=== PATIENT | female | born 1940 | race Caucasian/White ===

== ENCOUNTER → 2025-01-24 11:24 | Outpatient (REF) | payer OTHER, SELFPAY | LOC: HWRAD 11:24 | PROVIDERS: ATTENDING PHYSICIAN Internal Medicine; FAMILY PHYSICIAN Nurse Practitioner Adult Health | DX: R91.8 Other nonspecific abnormal finding of lung field (principal) | CPT/HCPCS: 71250 ==

== ENCOUNTER 2025-02-12 06:41 | Day surgery (SDC) | payer OTHER, SELFPAY ==
[2025-02-01 11:30] LABS: Hematocrit 37.2 % (37.0-47.0); Hemoglobin 12.6 g/dL (12.0-16.0); Mean Corp Hgb Conc. 33.9 g/dL (33.0-37.0); Mean Corpuscular Hgb 34.4 pg (27.0-31.0); Mean Corpuscular Volume 101.6 fL (81.0-99.0); Platelet Count 166 10^3/uL (130-400); Red Blood Cell Count 3.66 10^6/uL (4.20-5.40); Red Cell Dist. Width 12.7 % (11.5-14.5); White Blood Cell Count 3.9 10^3/uL (4.8-10.8)
[2025-02-01 11:39] LABS: PT 13.7 Sec (11.4-14.6)
[2025-02-01 11:40] LABS: APTT 25.9 Sec (23.4-35.0)
[2025-02-01 14:08] VITALS: BMI 31.0
--- NOTE | 2025-02-07 14:43 | PTCARENOTE ---
Abn ECG, Dr. Patel made aware, no further interventions requested.
[2025-02-12] VITALS (12 sets, daily range): BP systolic 106–160; BP diastolic 53–82; BMI 40.6
[2025-02-12] MEDS: DUONEB 3 ML INH (10:56)
== END 2025-02-12 15:50 | disposition home or self-care (01) ==
LOC: GI 06:41
PROVIDERS: ATTENDING PHYSICIAN Internal Medicine Critical Care Medicine; FAMILY PHYSICIAN Nurse Practitioner Adult Health
DX: R91.8 Other nonspecific abnormal finding of lung field (principal); C34.12 Malignant neoplasm of upper lobe, left bronchus or lung; R91.1 Solitary pulmonary nodule; R93.89 Abnormal findings on diagnostic imaging of other specified body structures; I10 Essential (primary) hypertension
CPT/HCPCS: 31629; 31628; 31624; 31623; 31627; 88173; 88305; 36415; 71045; 76000; 81459; 85027; 85610; 85730; 87070; 87102; 87116; 87205; 88112; 93005; 94640; C1887

== ENCOUNTER → 2025-02-15 09:12 | Outpatient (REF) | payer OTHER, SELFPAY | LOC: PET 09:12 | PROVIDERS: ATTENDING PHYSICIAN Internal Medicine Critical Care Medicine | DX: C34.12 Malignant neoplasm of upper lobe, left bronchus or lung (principal) | CPT/HCPCS: 78815; A9552 ==

== ENCOUNTER → 2025-03-14 14:19 | Outpatient (REF) | payer OTHER, SELFPAY | LOC: HWRAD 14:19 | PROVIDERS: ATTENDING PHYSICIAN Internal Medicine; FAMILY PHYSICIAN Nurse Practitioner Adult Health | DX: R91.8 Other nonspecific abnormal finding of lung field (principal) | CPT/HCPCS: 71250 ==

== ENCOUNTER 2025-03-19 06:16 | Day surgery (SDC) | payer OTHER, SELFPAY ==
[2025-03-14 13:07] VITALS: BMI 42.6
[2025-03-14 13:28] LABS: Blood Urea Nitrogen 16 mg/dl (7-17); Calcium 9.3 mg/dl (8.4-10.2); Carbon Dioxide 37 mmol/L (22-30); Chloride 103 mmol/L (98-107); Estimated Creatinine Clearance 64 ml/min; Glucose 101 mg/dl (70-99); Potassium 3.7 mmol/L (3.5-5.1); Sodium 143 mmol/L (135-145); eGFR > 60.00
[2025-03-19] VITALS (13 sets, daily range): BP systolic 101–142; BP diastolic 54–72; BMI 38.4
[2025-03-19] MEDS: VENTOLIN NEBULES 2.5 MG INH (13:47)
== END 2025-03-19 14:15 | disposition home or self-care (01) ==
LOC: GI 06:16
PROVIDERS: ATTENDING PHYSICIAN Internal Medicine Critical Care Medicine; FAMILY PHYSICIAN Nurse Practitioner Adult Health
DX: R91.1 Solitary pulmonary nodule (principal); R59.0 Localized enlarged lymph nodes; C34.11 Malignant neoplasm of upper lobe, right bronchus or lung
CPT/HCPCS: 31629; 31628; 31624; 31623; 31654; 31627; 88173; 88305; 36415; 71045; 76000; 80048; 81459; 88112; 88333; 88341; 88342; 94640; C1887

== ENCOUNTER → 2025-05-29 09:15 | Outpatient (REF) | payer OTHER, SELFPAY | LOC: DHSLP 09:15 | PROVIDERS: ATTENDING PHYSICIAN Internal Medicine; FAMILY PHYSICIAN Nurse Practitioner Adult Health | DX: G47.33 Obstructive sleep apnea (adult) (pediatric) (principal); R09.02 Hypoxemia | CPT/HCPCS: 95800 ==